=== PATIENT | male | born 1940 | race Caucasian/White ===

== ENCOUNTER → 2021-04-09 | Outpatient (CLI) | payer MEDICARE ==
--- NOTE | 2021-04-09 15:42 | Diagnostic Imaging Report ---
INDICATION: Lump in the right neck. Sonographic interrogation of the area of lump in the right neck was performed. This is at the angle of the mandible. There is a hypoechoic solid-appearing mass either within or immediately adjacent to the right parotid gland measuring 2.2 x 1.3 x 2.3 cm. This does show some internal vascularity. No other masses are seen. IMPRESSION: Solid appearing mass either within or immediately adjacent to the right parotid gland. CT soft tissue neck study with contrast could be performed for further characterization. Dictated by: Dictated on workstation # [id number]
== END ==
LOC: RAD 14:11
PROVIDERS: ATTEND Otolaryngology
DX: R22.1 Localized swelling, mass and lump, neck (principal)
CPT/HCPCS: 76536

== ENCOUNTER → 2021-04-13 | Day surgery (SDC) | payer MEDICARE ==
[~2021-04-13] VITALS: Ht 180.3 cm; Wt 76.4 kg
[~2021-04-13] MED LIST: LIDOCAINE 1% INJ 20 ML 20 ML VIAL INJ ONE
--- NOTE | 2021-04-13 10:06 | Diagnostic Imaging Report ---
INDICATION: Right neck mass. Patient presents for ultrasound-guided biopsy. Patient was brought to the procedure room and placed on the table in the left side down cubitus position. Ultrasound imaging of the right neck was performed to evaluate appropriate entry site. Right neck was then prepped and draped in the usual sterile fashion. Small amount of 1% lidocaine was utilized for local anesthesia. Total of 3 passes were made into the solid hypoechoic mass in the right neck in the region of the right parotid gland utilizing 18-gauge Tem[place] needle. Hemostasis was obtained using manual compression. Patient tolerated the procedure well and left the Department in stable condition. IMPRESSION: Successful ultrasound-guided core biopsy of the solid mass right neck in the region of the right parotid gland. Pathology results are currently pending. Dictated by: Dictated on workstation # [id number]
== END ==
LOC: RAD 08:36
PROVIDERS: ATTEND Otolaryngology
DX: C49.0 Malignant neoplasm of connective and soft tissue of head, face and neck (principal)
CPT/HCPCS: 76942; 88307; 88341; 88342; 88344